=== PATIENT | male | born 1975 | race Caucasian/White ===

== ENCOUNTER 2017-02-19 14:49 | Emergency (ER) | payer BC ==
--- NOTE | 2017-02-19 15:17 | EDM.PDOC ---
[id number]: tachycardia Time Seen by Provider: 02/19/17 14:53 Source of Information: Reports: Patient History Limitations: Reports: No limitations - History of Present Illness INITIAL COMMENTS - FREE TEXT/NARRATIVE: This patient is a 41 year old male that presents to the ER. Patient reports that he had an ablation for a-flutter on at [facility] with Dr. Arrington the care manager cna. He reports that he went home and was feeling fine. He reports then on Sunday evening he was sitting in his chair when he started having fluttering and flopping of his heart in his chest. He reports having nausea and shortness of breath with it. He reports calling Dr. Arrington today and was asked to come to ER for EKG. Symptom Onset Date: 02/17/17 Timing/Duration: Reports: Day(s): (2) Severity: moderate Location, General: Reports: chest Quality: Reports: Other ("flopping") Improves with: Reports: None Worsens with: Reports: None Associated Symptoms (General): Reports: nausea/vomiting, shortness of breath. Denies: confusion, chest pain, cough, cough w sputum, diaphoresis, fever/chills , headaches, loss of appetite, malaise, rash, seizure, syncope, weakness - Related Data Allergies/ADRs: Allergies Allergy/AdvReac Type Severity Reaction Status Date / Time No Known Allergies Allergy Verified 02/19/17 14:59 Home Meds: Home Meds Apixaban [Eliquis] 5 mg PO BID 02/19/17 [History] Metoprolol Tartrate [Metoprolol Tartrate] 50 mg PO BID 02/19/17 [History] Pantoprazole [ProTONIX] 40 mg PO DAILY 02/19/17 [History] Past Medical History Cardiovascular History: Reports: Afib, Hypertension - Past Surgical History Other Cardiovascular Surgeries/Procedures: cardiac ablation 2005, 02/15/17 GI Surgical History: Reports: Appendectomy Social & Family History - Tobacco Use Smoking Status *Q: Former Smoker Used Tobacco, but Quit: Yes Month Tobacco Last Used: approx 1 year ago - Caffeine Use Caffeine Use: Reports: None - Alcohol Use Days Per Week of Alcohol Use: 3 Number of Drinks Per Day: 12 Total Drinks Per Week: 36 - Recreational Drug Use Recreational Drug Use: No ED ROS GENERAL - Review of Systems Review Of Systems: See Below Constitutional: Reports: no symptoms HEENT: Reports: No symptoms Respiratory: Reports: Shortness of Breath Cardiovascular: Reports: Dyspnea on exertion, Other ("flopping, fluttering of heart") Endocrine: Reports: no symptoms GI/Abdominal: Reports: Nausea : Reports: no symptoms Musculoskeletal: Reports: no symptoms Skin: Reports: no symptoms Neurological: Reports: No Symptoms Psychiatric: Reports: No symptoms Hematologic/Lymphatic: Reports: no symptoms Immunologic: Reports: no symptoms ED EXAM, GENERAL - Physical Exam Exam: See Below Exam Limited By: No limitations General Appearance: alert, WD/WN, no apparent distress, obese Eye Exam: bilateral eye: normal inspection, PERRL Ears: normal external exam, normal canal, hearing grossly normal, normal TMs Ear Exam: bilateral ear: auricle normal, canal normal, TM normal Nose: normal inspection, normal mucosa, no blood Throat/Mouth: Normal inspection, Normal lips, Normal teeth, Normal gums, Normal oropharynx, Normal voice, No airway compromise Head: atraumatic, normocephalic Neck: normal inspection, supple, non-tender, full range of motion Respiratory/Chest: no respiratory distress, lungs clear, normal breath sounds, no accessory muscle use Cardiovascular: normal peripheral pulses, no edema, no JVD, irregularly irregular Peripheral Pulses: 2+: carotid (L), carotid (R), radial (L), radial (R), posterior tibial (L), posterior tibial (R) Back Exam: normal inspection, full range of motion Extremities: normal inspection, normal range of motion, non-tender, no pedal edema, normal capillary refill Neurological: alert, oriented Psychiatric: normal affect, normal mood Skin Exam: Warm, Dry, Intact, Normal color, No rash Lymphatic: no adenopathy EKG INTERPRETATION EKG Date: 02/19/17 Time: 15:01 Rhythm: a-flutter Rate (beats/min): 132 Course - Vital Signs Last Recorded V/S: Last Vital Signs Temp 98.5 F 02/19/17 15:15 Pulse 129 H 02/19/17 15:50 Resp 20 02/19/17 15:15 BP 128/76 02/19/17 16:10 Pulse Ox 96 02/19/17 15:15 - Orders/Labs/Meds Orders: Active Orders 24 hr Category Date Time Status Chest 2V [CR] Stat Exams 02/19/17 14:54 Taken Labs: Laboratory Tests 02/19/17 02/19/17 Range/Units 14:53 15:00 WBC 9.8 (5.0-10.0) 10^3/uL RBC 4.52 (4.50-6.00) 10^6/uL Hgb 13.7 L (14.0-18.0) g/dL Hct 41.3 (40.0-54.0) % MCV 91.4 (82.0-94.0) fL MCH 30.3 (27.0-32.0) pg MCHC 33.2 (33.0-38.0) g/dL RDW Coeff of Rusty 13.8 (11.0-15.0) % Plt Count 220 (150-400) 10^3/uL Neut % (Auto) 64.1 (35-85) % Lymph % (Auto) 24.1 (10-55) % Parmer % (Auto) 8.4 (0-16) % Eos % (Auto) 3.2 (0-5) % Baso % (Auto) 0.2 (0-3) % Neut # (Auto) 6.26 (1.80-7.00) 10^3/uL Lymph # (Auto) 2.35 (1.00-4.80) 10^3/uL Parmer # (Auto) 0.82 H (0.00-0.80) 10^3/uL Eos # (Auto) 0.31 (0.00-0.45) 10^3/uL Baso # (Auto) 0.02 10^3/uL Sodium 139 (136-145) mEq/L Potassium 4.0 (3.5-5.0) mEq/L Chloride 103 (98-106) mEq/L Carbon Dioxide 29 (21-32) mmol/L BUN 12 (7-18) mg/dL Creatinine 0.9 (0.7-1.3) mg/dL Est Cr Clr Drug Dosing 123.05 mL/min Estimated GFR (MDRD) > 60 (>=60) mL/min Glucose 116 H (75-99) mg/dL Calcium 8.7 (8.4-10.1) mg/dL Magnesium 2.1 (1.8-2.4) mg/dL Total Bilirubin 0.4 (0.0-1.0) mg/dL AST 15 (15-37) U/L ALT 25 (12-78) U/L Alkaline Phosphatase 86 (46-116) U/L Creatine Kinase 29 L (35-232) U/L Troponin I 0.061 H (0.00-0.06) ng/mL Total Protein 7.4 (6.4-8.2) g/dL Albumin 3.1 L (3.4-5.0) g/dL Meds: Medications Discontinued Medications Generic Name Dose Route Start Last Admin Trade Name Freq PRN Reason Stop Dose Admin Diltiazem HCl 10 mg 02/19/17 15:21 02/19/17 15:48 Diltiazem IVPUSH 02/19/17 15:22 10 mg ONETIME ONE Administration Diltiazem HCl 100 mg/ Sodium 100 mls @ 5 mls/hr 02/19/17 15:30 02/19/17 15:50 Chloride IV 5 mls/hr TITRATE KATYA Administration Protocol 5 MG/HR Sodium Chloride Confirm 02/19/17 15:39 02/19/17 15:51 Normal Saline Administered 02/19/17 15:40 25 ml Dose Administration 1,000 mls @ as directed .ROUTE .STK-MED ONE - Radiology Interpretation Free Text/Narrative:: CXR: No infiltrates, no edema, no cardiac enlargement. - Re-Assessments/Exams Free Text/Narrative Re-Assessment/Exam: 02/19/17 15:20 reviewed EKG that shows him in A-flutter with HR of 132. I called to talke to Dr Arrington and faxed copy of his EKG. She has reported to one call transfer line to transfer the patient for cardioversion tomorrow. I then spoke to the hospitalist Dr. Salazar who has accepted the patient. He requests to start the patient on Cardizem gtt. I will do this and transfer the patient. Departure - Departure Time of Disposition: 15:18 Disposition: DC/Tfer to Acute Hospital 02 Reason for Transfer *Q: Other Condition: fair Clinical Impression: Atrial flutter Qualifiers: Atrial flutter type: unspecified Qualified Code(s): I48.92 - Unspecified atrial flutter Dyspnea Qualifiers: Dyspnea type: dyspnea on exertion Qualified Code(s): R06.09 - Other forms of dyspnea Referrals: Siav Orozco MD [Primary Care Provider] - Forms: ED Department Discharge - My Orders Last 24 Hours: My Active Orders 02/19/17 14:54 Chest 2V [CR] Stat - Assessment/Plan Last 24 Hours: My Active Orders 02/19/17 14:54 Chest 2V [CR] Stat Plan: PLEASE SEE RN NOTE FOR PFSH.
[2017-02-19] MEDS ORDERED: Diltiazem 25 MG/5 ML SDV IVPUSH ONE (15:21)
[2017-02-19 15:23] LABS: CHLORIDE,CL 103 mEq/L (98-106); SODIUM,NA 139 mEq/L (136-145)
[2017-02-19] MEDS ORDERED: Diltiazem 100 MG in Sodium Chloride 0.9% 100 ML IV SCH (15:30)
[2017-02-19] MEDS ORDERED: Sodium Chloride 0.9% 1,000 ML ONE (15:39)
[2017-02-19 16:13] VITALS: BP 128/76
== END 2017-02-19 16:20 ==
LOC: CC.ED 14:49
DX: I48.92 Unspecified atrial flutter (principal); I48.91 Unspecified atrial fibrillation; I10 Essential (primary) hypertension; Z90.49 Acquired absence of other specified parts of digestive tract; Z87.891 Personal history of nicotine dependence; Z79.899 Other long term (current) drug therapy
CPT/HCPCS: 36415; 71020; 80053; 82550; 83735; 84484; 85025; 93005; 96365; 96376; 99285; J7030; J7050; J3490

== ENCOUNTER 2021-08-30 11:54 | Inpatient (IN) | payer BC ==
[~2021-08-30 11:54] MED LIST: Adenosine 6 MG/2 ML SDV ONE; Diltiazem 25 MG/5 ML SDV ONE
[2021-08-30] MEDS ORDERED: Diltiazem 25 MG/5 ML SDV IVPUSH ONE ×2 (12:22→12:34)
[2021-08-30] MEDS ORDERED: Adenosine 6 MG/2 ML SDV IVPUSH ONE ×2 (12:22→12:23)
[2021-08-30 12:45] LABS: CHLORIDE,CL 102 mEq/L (98-106); SODIUM,NA 140 mEq/L (136-145)
[2021-08-30] MEDS ORDERED: Diltiazem 100 MG in Sodium Chloride 0.9% 100 ML IV SCH (12:45)
[2021-08-30] MEDS ORDERED: Digoxin 500 MCG/2 ML Amp IVPUSH ONE (14:03)
[2021-08-30] MEDS ORDERED: Ondansetron 4 MG/2 ML SDV IV PRN (14:34)
[2021-08-30] MEDS ORDERED: Acetaminophen 325 MG Tab PO PRN (14:34)
[2021-08-30] MEDS ORDERED: Ondansetron 4 MG Tab.DIS PO PRN (14:34)
[2021-08-30] MEDS ORDERED: Sodium Chloride 0.9% 10 ML Syringe FLUSH PRN (14:34)
[2021-08-30] MEDS: Apixaban 5 MG Tab PO SCH (16:56)
[2021-08-30] MEDS: Metoprolol Tartrate 50 MG Tab PO SCH (16:57)
--- NOTE | 2021-08-30 17:14 | EDM.PDOC ---
ED HPI GENERAL MEDICAL PROBLEM - General Chief Complaint: General Stated Complaint: Palpitations Time Seen by Provider: 08/30/21 12:05 Source of Information: Reports: Patient History Limitations: Reports: No Limitations - History of Present Illness INITIAL COMMENTS - FREE TEXT/NARRATIVE: Joaquin is a 45 year old male who presented initially to clinic with complaints of palpitations, questioned if in atrial fib or flutter again. Patient has long standing history of this, diagnosed back 15 years ago. Over the years, has had ablations x3 and cardioversion 2-3 times due to paroxysmal atrial fib. Was seen by Dr. Salomón xiong in April for an evaluation. Was switched from Sotalol to Metoprolol 100 mg daily. [place] that it caused excessive fatigue, had no ambition for anything. Advised Dr. Pa of this when seen 3 weeks ago. Reduced his dose to 50 mg daily. Had felt that he was in atrial fib when he was enroute to [place] at that time but when evaluated was in NSR. Noted a change in his rhythm again about a week ago but has persisted with rapid heart rate now for the last 4 days. Increased his metoprolol at that time but hasn't noted any change. Denies any chest pain or shortness of breath. has noted an increase of 20# over the last month. Noted more edema as well. Onset: Gradual Duration: Day(s):, Constant Location: Reports: Chest Associated Symptoms: Reports: Other (fatigue). Denies: Chest Pain, Diaphoresis, Fever/Chills, Headaches, Loss of Appetite, Nausea/Vomiting, Shortness of Breath, Syncope - Related Data Allergies Allergy/AdvReac Type Severity Reaction Status Date / Time amiodarone Allergy Hives Verified 08/30/21 13:00 Home Meds: Home Meds Apixaban [Eliquis] 5 mg PO BID 02/19/17 [History] Metoprolol Tartrate 50 mg PO DAILY 02/19/17 [History] Past Medical History Cardiovascular History: Reports: Afib, Hypertension - Past Surgical History Other Cardiovascular Surgeries/Procedures: cardiac ablation 2005, 02/15/17 GI Surgical History: Reports: Appendectomy Social & Family History - Family History Family Medical History: No Pertinent Family History - Tobacco Use Tobacco Use Status *Q: Never Tobacco User Second Hand Smoke Exposure: No - Caffeine Use Caffeine Use: Reports: None - Recreational Drug Use Recreational Drug Use: No ED ROS GENERAL - Review of Systems Review Of Systems: See Below Constitutional: Reports: Malaise, Fatigue. Denies: Fever, Chills, Weakness, Decreased Appetite HEENT: Reports: Rhinitis, Sinus Problem. Denies: Nose Pain, Throat Pain, Vertigo Respiratory: Denies: Shortness of Breath, Cough Cardiovascular: Reports: Edema. Denies: Chest Pain, Lightheadedness Endocrine: Reports: Fatigue GI/Abdominal: Denies: Abdominal Pain, Nausea, Vomiting : Reports: No Symptoms Musculoskeletal: Reports: No Symptoms Skin: Reports: No Symptoms Neurological: Reports: No Symptoms Psychiatric: Reports: No Symptoms ED EXAM, GENERAL - Physical Exam Exam: See Below Exam Limited By: No Limitations General Appearance: Alert, WD/WN, No Apparent Distress Ears: Normal External Exam, Normal TMs Nose: Normal Inspection, Nasal Drainage Throat/Mouth: Normal Inspection, Normal Oropharynx Head: Normocephalic Neck: Normal Inspection, Supple, Non-Tender Respiratory/Chest: No Respiratory Distress, Lungs Clear, Normal Breath Sounds Cardiovascular: Tachycardia GI/Abdominal: Normal Bowel Sounds, Soft, Non-Tender Extremities: Normal Inspection, Pedal Edema (1+) Neurological: Alert, Oriented Skin Exam: Warm, Dry Course - Vital Signs Last Recorded V/S: Last Vital Signs Temp 98.4 F 08/30/21 19:42 Pulse 88 08/30/21 19:42 Resp 20 08/30/21 19:42 BP 123/78 08/30/21 19:42 Pulse Ox 94 L 08/30/21 19:42 - Orders/Labs/Meds Orders: Active Orders 24 hr Category Date Time Status Chest 1V Frontal [CR] Stat Exams 08/30/21 12:12 Taken Diltiazem [Cardizem] 100 mg Med 08/30/21 12:45 Active Sodium Chloride 0.9% [Normal Saline AdvBag] 100 ml IV TITRATE Medication Orders Acetaminophen (Acetaminophen 325 Mg Tab) 650 mg PO Q4H PRN PRN Reason: Pain (Mild 1-3)/fever Apixaban (Apixaban 5 Mg Tab) 5 mg PO BID [facility] Last Admin: 08/30/21 16:56 Dose: 5 mg Documented by: JORGE Digoxin (Digoxin 500 Mcg/2 Ml Amp) 250 mcg IVPUSH Q6H [facility] Stop: 08/31/21 02:01 Diltiazem HCl 100 mg/ Sodium (Chloride) 100 mls @ 5 mls/hr IV TITRATE KATYA; Protocol Last Titration: 08/30/21 14:10 Dose: 15 mg/hr, 15 mls/hr Documented by: Admin: 08/30/21 12:49 Dose: 5 mg/hr, 5 mls/hr Documented by: JORGE Metoprolol Tartrate (Metoprolol Tartrate 50 Mg Tab) 75 mg PO Q12H KATYA Last Admin: 08/30/21 16:57 Dose: 75 mg Documented by: JORGE Ondansetron HCl (Ondansetron 4 Mg Tab.Dis) 4 mg PO Q4H PRN PRN Reason: nausea, able to take PO Ondansetron HCl (Ondansetron 4 Mg/2 Ml Sdv) 4 mg IV Q4H PRN PRN Reason: Nausea/Vomiting Sodium Chloride (Sodium Chloride 0.9% 10 Ml Syringe) 10 ml FLUSH ASDIRECTED PRN PRN Reason: Keep Vein Open Labs: Laboratory Tests 08/30/21 08/30/21 08/30/21 Range/Units 12:00 12:20 12:20 WBC 10.8 (4.0-11.0) 10^3/uL RBC 4.37 L (4.50-6.00) x10^6/uL Hgb 13.1 L (14.0-18.0) g/dL Hct 40.8 L (42.0-52.0) % MCV 93.4 (83.0-97.0) fL MCH 30.0 (27.0-32.0) pg MCHC 32.1 (32.0-36.0) g/dL RDW Coeff of Rusty 13.6 (11.0-15.0) % Plt Count 239 (150-400) 10^3/uL Immature Gran % (Auto) 0.2 (0.0-4.9) % Neut % (Auto) 71.4 H (41-71) % Lymph % (Auto) 18.8 L (24-44) % [place] % (Auto) 7.5 (0-10) % Eos % (Auto) 1.8 (0-6) % Baso % (Auto) 0.3 (0-1) % Neut # (Auto) 7.73 (1.80-8.00) x10^3/uL Lymph # (Auto) 2.03 (0.60-5.00) 10^3/uL Charlotte # (Auto) 0.81 (0.00-1.50) 10^3/uL Eos # (Auto) 0.20 (0.00-1.50) 10^3/uL Baso # (Auto) 0.03 (0.00-0.50) 10^3/uL Immature Gran # (Auto) 0.02 (0.00-0.49) 10^3/uL Sodium 140 (136-145) mEq/L Potassium 3.9 (3.5-5.0) mEq/L Chloride 102 (98-106) mEq/L Carbon Dioxide 31 (21-32) mmol/L BUN 11 (7-18) mg/dL Creatinine 1.1 (0.7-1.3) mg/dL Est Cr Clr Drug Dosing 96.52 mL/min Estimated GFR (MDRD) > 60 (>=60) mL/min Glucose 146 H (75-99) mg/dL Calcium 8.8 (8.4-10.1) mg/dL Total Bilirubin 0.6 (0.0-1.0) mg/dL AST 32 (15-37) U/L ALT 33 (12-78) U/L Alkaline Phosphatase 108 (46-116) U/L Lactate Dehydrogenase 190 (100-190) U/L Creatine Kinase 185 (35-232) U/L Troponin I High Sens 14.8 (<=76) pg/mL NT-Pro-B Natriuret Pep 2273 H (0-1000) pg/mL Total Protein 7.3 (6.4-8.2) g/dL Albumin 2.9 L (3.4-5.0) g/dL SARS CoV-2 RNA Rapid CORINNE Negative (NEGATIVE) Meds: Medications Generic Name Dose Route Start Last Admin Trade Name Freq PRN Reason Stop Dose Admin Acetaminophen 650 mg 08/30/21 14:34 Acetaminophen 325 Mg Tab PO Q4H PRN Pain (Mild 1-3)/fever Apixaban 5 mg 08/30/21 15:45 08/30/21 16:56 Apixaban 5 Mg Tab PO 5 mg BID KATYA Administration Digoxin 250 mcg 08/30/21 20:00 Digoxin 500 Mcg/2 Ml Amp IVPUSH 08/31/21 02:01 Q6H KATYA Diltiazem HCl 100 mg/ Sodium 100 mls @ 5 mls/hr 08/30/21 12:45 08/30/21 14:10 Chloride IV 15 mg/hr TITRATE KATYA 15 mls/hr Titration Protocol 5 MG/HR Metoprolol Tartrate 75 mg 08/30/21 16:30 08/30/21 16:57 Metoprolol Tartrate 50 Mg Tab PO 75 mg Q12H KATYA Administration Ondansetron HCl 4 mg 08/30/21 14:34 Ondansetron 4 Mg Tab.Dis PO Q4H PRN nausea, able to take PO Ondansetron HCl 4 mg 08/30/21 14:34 Ondansetron 4 Mg/2 Ml Sdv IV Q4H PRN Nausea/Vomiting Sodium Chloride 10 ml 08/30/21 14:34 Sodium Chloride 0.9% 10 Ml Syringe FLUSH ASDIRECTED PRN Keep Vein Open Discontinued Medications Generic Name Dose Route Start Last Admin Trade Name Freq PRN Reason Stop Dose Admin Adenosine Confirm 08/30/21 11:38 08/30/21 12:24 Adenosine 6 Mg/2 Ml Sdv Administered 08/30/21 11:39 Not Given Dose 6 mg .ROUTE .STK-MED ONE Adenosine Confirm 08/30/21 11:41 08/30/21 12:24 Adenosine 6 Mg/2 Ml Sdv Administered 08/30/21 11:42 Not Given Dose 12 mg .ROUTE .STK-MED ONE Adenosine 6 mg 08/30/21 12:22 08/30/21 12:06 Adenosine 6 Mg/2 Ml Sdv IVPUSH 08/30/21 12:23 6 mg NOW ONE Administration Adenosine 12 mg 08/30/21 12:23 08/30/21 12:08 Adenosine 6 Mg/2 Ml Sdv IVPUSH 08/30/21 12:24 12 mg NOW ONE Administration Digoxin 500 mcg 08/30/21 14:03 08/30/21 14:17 Digoxin 500 Mcg/2 Ml Amp IVPUSH 08/30/21 14:04 500 mcg ONETIME ONE Administration Diltiazem HCl Confirm 08/30/21 11:45 08/30/21 12:24 Diltiazem 25 Mg/5 Ml Sdv Administered 08/30/21 11:46 Not Given Dose 25 mg .ROUTE .STK-MED ONE Diltiazem HCl 10 mg 08/30/21 12:22 08/30/21 12:15 Diltiazem 25 Mg/5 Ml Sdv IVPUSH 08/30/21 12:23 10 mg ONETIME ONE Administration Diltiazem HCl 10 mg 08/30/21 12:34 08/30/21 12:34 Diltiazem 25 Mg/5 Ml Sdv IVPUSH 08/30/21 12:35 10 mg ONETIME ONE Administration - Re-Assessments/Exams Free Text/Narrative Re-Assessment/Exam: 08/30/[address] Pa's office, patient's educator senior clinical. Spoke with nurse, will call back with recommendations 1330-Patient has been given total of 20 mg IVP of Cardizem. Cardizem drip started. Did see reduction in rate down to 120s for short period of time and noted atrial flutter versus SVT. Advised from Dr. Pa's office to contact [place] [facility] call. Spoke with DR. Parmar. Did discuss cardioversion but due to lack of anesthesia here in [place] and they are not accepting patient's, advised to start an Amiodarone drip but advised of allergy. Suggested increasing metoprolol and dig load patient. 1415-Admit. Continue Cardizem drip until rate controlled with dig and metoprolol and wean down off the cardizem drip. Departure - Departure Time of Disposition: 14:30 Disposition: Admitted As Inpatient 64 Condition: Fair Clinical Impression: Atrial flutter with rapid ventricular response Sepsis Event Note (ED) - Evaluation Sepsis Screening Result: No Definite Risk - Focused Exam Vital Signs: Vital Signs Temp Pulse Resp BP Pulse Ox 08/30/21 13:47 152 H 18 126/54 L 96 08/30/21 13:01 148 H 18 126/69 96 08/30/21 12:33 165 H 18 130/95 H 95 08/30/21 12:25 168 H 14 118/56 L 96 08/30/21 11:55 97.2 F 170 H 18 125/57 L 95 - Problem List & Annotations (1) Atrial flutter with rapid ventricular response SNOMED Code(s): 3404359, 0565459 Code(s): I48.92 - UNSPECIFIED ATRIAL FLUTTER Status: Acute Priority: High Current Visit: Yes - Problem List Review Problem List Initiated/Reviewed/Updated: Yes - My Orders Last 24 Hours: My Active Orders 08/30/21 12:12 Chest 1V Frontal [CR] Stat 08/30/21 12:45 Diltiazem [Cardizem] 100 mg Sodium Chloride 0.9% [Normal Saline AdvBag] 100 ml IV TITRATE - Assessment/Plan Admission H&P: Please use this note as an admission H&P Last 24 Hours: My Active Orders 08/30/21 12:12 Chest 1V Frontal [CR] Stat 08/30/21 12:45 Diltiazem [Cardizem] 100 mg Sodium Chloride 0.9% [Normal Saline AdvBag] 100 ml IV TITRATE Assessment:: ATrial Flutter with RVR Plan: Admit inpatient. Dig load patient, increase metoprolol, reduce Cardizem as able. Will give dose of IV Lasix in am. Repeat labs at that time
[2021-08-30] MEDS: Digoxin 500 MCG/2 ML Amp IVPUSH SCH (20:36)
[2021-08-31] MEDS: Apixaban 5 MG Tab PO SCH ×2 (00:05→07:52)
[2021-08-31] MEDS: Digoxin 500 MCG/2 ML Amp IVPUSH SCH (02:16)
[2021-08-31] MEDS: Metoprolol Tartrate 50 MG Tab PO SCH (04:55)
[2021-08-31 04:56] VITALS: PULSE 156
[2021-08-31 07:40] LABS: CHLORIDE,CL 103 mEq/L (98-106); SODIUM,NA 139 mEq/L (136-145)
[2021-08-31 07:53] VITALS: BP 127/87
--- NOTE | 2021-08-31 08:59 | PCM.DCSUM1 ---
Discharge Summary - Hospital Course HPI Initial Comments: Joaquin is a 45 year old male who presented initially to clinic with complaints of palpitations, questioned if in atrial fib or flutter again. Patient has long standing history of this, diagnosed back 15 years ago. Over the years, has had ablations x3 and cardioversion 2-3 times due to paroxysmal atrial fib. Was seen by Dr. Lorenzana back in April for an evaluation. Was switched from Sotalol to Metoprolol 100 mg daily. [place] that it caused excessive fatigue, had no ambition for anything. Advised Dr. Pa of this when seen 3 weeks ago. Reduced his dose to 50 mg daily. Had felt that he was in atrial fib when he was enroute to [place] at that time but when evaluated was in NSR. Noted a change in his rhythm again about a week ago but has persisted with rapid heart rate now for the last 4 days. Increased his metoprolol at that time but hasn't noted any change. Denies any chest pain or shortness of breath. has noted an increase of 20# over the last month. Noted more edema as well. - Discharge Data Discharge Date: 08/31/21 Discharge Disposition: Home, Self-Care 01 Condition: Good - Referral to Home Health Primary Care Physician: Siva Orozco MD - Discharge Diagnosis/Problem(s) (1) Atrial flutter with rapid ventricular response SNOMED Code(s): 0781612, [id number] ICD Code: I48.92 - UNSPECIFIED ATRIAL FLUTTER Status: Acute Priority: High Current Visit: Yes - Patient Instructions Diet: Heart Healthy Diet Activity: As Tolerated, No Strenuous Activities - Discharge Plan *PRESCRIPTION DRUG MONITORING PROGRAM REVIEWED*: Not Applicable *COPY OF PRESCRIPTION DRUG MONITORING REPORT IN PATIENT DAWNA: Not Applicable Prescriptions/Med Rec: Digoxin 250 mcg PO DAILY #30 tablet Furosemide [Lasix] 40 mg PO DAILY #30 tab Metoprolol Tartrate [Lopressor] 75 mg PO Q12H #45 tablet Home Medications: Home Meds Apixaban [Eliquis] 5 mg PO BID 02/19/17 [History] Digoxin 250 mcg PO DAILY #30 tablet 08/31/21 [Rx] Furosemide [Lasix] 40 mg PO DAILY #30 tab 08/31/21 [Rx] Metoprolol Tartrate [Lopressor] 75 mg PO Q12H #45 tablet 08/31/21 [Rx] Oxygen Therapy Mode: Room Air Forms: ED Department Discharge Referrals: Siva Orozco MD [Primary Care Provider] - (1 week, labs prior to include ProBNP, BMP and digoxin level) - Discharge Summary/Plan Comment DC Time >30 min.: Yes Total # of Minutes for Discharge Time: 45 minutes Discharge Summary/Plan Comment: Plan for discharge home at this time. Patient will be started on Metoprolol Tartrate 75mg BID and will d/c the metoprolol succinate. Digoxin initiated in the hospital and will go home on 250mcg daily. Patient also started on Lasix 40mg daily, discussed with patient potassium depletion. Will have him follow up in 1 week for repeat labs and appointment with Dr. Orozco. Patient in agreement and voices understanding. Will return if any concerns. - General Info Date of Service: 08/31/21 Admission Dx/Problem (Free Text: Atrial flutter with RVR CHF Subjective Update: Joaquin states he is feeling fine this morning and requesting to go home. He states he can tell his rate isn't as fast as it was prior. Is scheduled to see Dr. Pa in October but wonders if he shouldn't see him sooner. He denies any chest pain. No shortness of breath, lightheadedness or presyncope. Questions if he can go on a water pill to help remove some of the excessive water weight. Functional Status: Reports: Tolerating Diet, Ambulating, Urinating. Denies: New Symptoms - Review of Systems General: Reports: Fatigue. Denies: Appetite HEENT: Reports: No Symptoms Pulmonary: Reports: No Symptoms Cardiovascular: Reports: No Symptoms Gastrointestinal: Reports: No Symptoms Genitourinary: Reports: No Symptoms Musculoskeletal: Reports: No Symptoms Neurological: Reports: No Symptoms Psychiatric: Reports: No Symptoms - Patient Data Vitals - Most Recent: Last Vital Signs Temp 97.8 F 08/31/21 07:52 Pulse 156 H 08/31/21 04:55 Resp 16 08/31/21 07:52 BP 127/87 08/31/21 07:52 Pulse Ox 95 08/31/21 07:52 Weight - Most Recent: 460 lb Lab Results - Last 24 hrs: Laboratory Results - last 24 hr 08/30/21 08/30/21 08/30/21 Range/Units 12:00 12:20 12:20 WBC 10.8 (4.0-11.0) 10^3/uL RBC 4.37 L (4.50-6.00) x10^6/uL Hgb 13.1 L (14.0-18.0) g/dL Hct 40.8 L (42.0-52.0) % MCV 93.4 (83.0-97.0) fL MCH 30.0 (27.0-32.0) pg MCHC 32.1 (32.0-36.0) g/dL RDW Coeff of Rusty 13.6 (11.0-15.0) % Plt Count 239 (150-400) 10^3/uL Immature Gran % (Auto) 0.2 (0.0-4.9) % Neut % (Auto) 71.4 H (41-71) % Lymph % (Auto) 18.8 L (24-44) % [place] % (Auto) 7.5 (0-10) % Eos % (Auto) 1.8 (0-6) % Baso % (Auto) 0.3 (0-1) % Neut # (Auto) 7.73 (1.80-8.00) x10^3/uL Lymph # (Auto) 2.03 (0.60-5.00) 10^3/uL [place] # (Auto) 0.81 (0.00-1.50) 10^3/uL Eos # (Auto) 0.20 (0.00-1.50) 10^3/uL Baso # (Auto) 0.03 (0.00-0.50) 10^3/uL Immature Gran # (Auto) 0.02 (0.00-0.49) 10^3/uL Sodium 140 (136-145) mEq/L Potassium 3.9 (3.5-5.0) mEq/L Chloride 102 (98-106) mEq/L Carbon Dioxide 31 (21-32) mmol/L BUN 11 (7-18) mg/dL Creatinine 1.1 (0.7-1.3) mg/dL Est Cr Clr Drug Dosing 96.52 mL/min Estimated GFR (MDRD) > 60 (>=60) mL/min Glucose 146 H (75-99) mg/dL Calcium 8.8 (8.4-10.1) mg/dL Total Bilirubin 0.6 (0.0-1.0) mg/dL AST 32 (15-37) U/L ALT 33 (12-78) U/L Alkaline Phosphatase 108 (46-116) U/L Lactate Dehydrogenase 190 (100-190) U/L Creatine Kinase 185 (35-232) U/L Troponin I High Sens 14.8 (<=76) pg/mL NT-Pro-B Natriuret Pep 2273 H (0-1000) pg/mL Total Protein 7.3 (6.4-8.2) g/dL Albumin 2.9 L (3.4-5.0) g/dL Digoxin (0.9-2.0) ng/mL SARS CoV-2 RNA Rapid CORINNE Negative (NEGATIVE) 08/31/21 08/31/21 Range/Units 06:55 06:55 WBC 9.1 (4.0-11.0) 10^3/uL RBC 4.32 L (4.50-6.00) x10^6/uL Hgb 12.9 L (14.0-18.0) g/dL Hct 40.2 L (42.0-52.0) % MCV 93.1 (83.0-97.0) fL MCH 29.9 (27.0-32.0) pg MCHC 32.1 (32.0-36.0) g/dL RDW Coeff of Rusty 13.6 (11.0-15.0) % Plt Count 210 (150-400) 10^3/uL Immature Gran % (Auto) 0.3 (0.0-4.9) % Neut % (Auto) 67.5 (41-71) % Lymph % (Auto) 22.7 L (24-44) % [place] % (Auto) 6.1 (0-10) % Eos % (Auto) 3.2 (0-6) % Baso % (Auto) 0.2 (0-1) % Neut # (Auto) 6.11 (1.80-8.00) x10^3/uL Lymph # (Auto) 2.06 (0.60-5.00) 10^3/uL [place] # (Auto) 0.55 (0.00-1.50) 10^3/uL Eos # (Auto) 0.29 (0.00-1.50) 10^3/uL Baso # (Auto) 0.02 (0.00-0.50) 10^3/uL Immature Gran # (Auto) 0.03 (0.00-0.49) 10^3/uL Sodium 139 (136-145) mEq/L Potassium 3.7 (3.5-5.0) mEq/L Chloride 103 (98-106) mEq/L Carbon Dioxide 30 (21-32) mmol/L BUN 11 (7-18) mg/dL Creatinine 1.0 (0.7-1.3) mg/dL Est Cr Clr Drug Dosing 106.18 mL/min Estimated GFR (MDRD) > 60 (>=60) mL/min Glucose 140 H (75-99) mg/dL Calcium 8.4 (8.4-10.1) mg/dL Total Bilirubin (0.0-1.0) mg/dL AST (15-37) U/L ALT (12-78) U/L Alkaline Phosphatase (46-116) U/L Lactate Dehydrogenase (100-190) U/L Creatine Kinase (35-232) U/L Troponin I High Sens (<=76) pg/mL NT-Pro-B Natriuret Pep (0-1000) pg/mL Total Protein (6.4-8.2) g/dL Albumin (3.4-5.0) g/dL Digoxin 1.1 (0.9-2.0) ng/mL SARS CoV-2 RNA Rapid CORINNE (NEGATIVE) Med Orders - Current: Current Medications Acetaminophen (Acetaminophen 325 Mg Tab) 650 mg PO Q4H PRN PRN Reason: Pain (Mild 1-3)/fever Apixaban (Apixaban 5 Mg Tab) 5 mg PO BID [facility] Last Admin: 08/31/21 07:52 Dose: 5 mg Documented by: Metoprolol Tartrate (Metoprolol Tartrate 50 Mg Tab) 75 mg PO Q12H [facility] Last Admin: 08/31/21 04:55 Dose: 75 mg Documented by: Ondansetron HCl (Ondansetron 4 Mg Tab.Dis) 4 mg PO Q4H PRN PRN Reason: nausea, able to take PO Ondansetron HCl (Ondansetron 4 Mg/2 Ml Sdv) 4 mg IV Q4H PRN PRN Reason: Nausea/Vomiting Sodium Chloride (Sodium Chloride 0.9% 10 Ml Syringe) 10 ml FLUSH ASDIRECTED PRN PRN Reason: Keep Vein Open Discontinued Medications Adenosine (Adenosine 6 Mg/2 Ml Sdv) Confirm Administered Dose 6 mg .ROUTE .STK- MED ONE Stop: 08/30/21 11:39 Last Admin: 08/30/21 12:24 Dose: Not Given Documented by: Adenosine (Adenosine 6 Mg/2 Ml Sdv) Confirm Administered Dose 12 mg .ROUTE .STK- MED ONE Stop: 08/30/21 11:42 Last Admin: 08/30/21 12:24 Dose: Not Given Documented by: Adenosine (Adenosine 6 Mg/2 Ml Sdv) 6 mg IVPUSH NOW ONE Stop: 08/30/21 12:23 Last Admin: 08/30/21 12:06 Dose: 6 mg Documented by: Adenosine (Adenosine 6 Mg/2 Ml Sdv) 12 mg IVPUSH NOW ONE Stop: 08/30/21 12:24 Last Admin: 08/30/21 12:08 Dose: 12 mg Documented by: Digoxin (Digoxin 500 Mcg/2 Ml Amp) 500 mcg IVPUSH ONETIME ONE Stop: 08/30/21 14:04 Last Admin: 08/30/21 14:17 Dose: 500 mcg Documented by: Digoxin (Digoxin 500 Mcg/2 Ml Amp) 250 mcg IVPUSH Q6H KATYA Stop: 08/31/21 02:01 Last Admin: 08/31/21 02:16 Dose: 250 mcg Documented by: Diltiazem HCl (Diltiazem 25 Mg/5 Ml Sdv) Confirm Administered Dose 25 mg .ROUTE .STK-MED ONE Stop: 08/30/21 11:46 Last Admin: 08/30/21 12:24 Dose: Not Given Documented by: Diltiazem HCl (Diltiazem 25 Mg/5 Ml Sdv) 10 mg IVPUSH ONETIME ONE Stop: 08/30/21 12:23 Last Admin: 08/30/21 12:15 Dose: 10 mg Documented by: Diltiazem HCl (Diltiazem 25 Mg/5 Ml Sdv) 10 mg IVPUSH ONETIME ONE Stop: 08/30/21 12:35 Last Admin: 08/30/21 12:34 Dose: 10 mg Documented by: Diltiazem HCl 100 mg/ Sodium (Chloride) 100 mls @ 5 mls/hr IV TITRATE KATYA; Protocol Last Titration: 08/30/21 14:10 Dose: 15 mg/hr, 15 mls/hr Documented by: - Exam General: Reports: Alert, Oriented, Cooperative, No Acute Distress Neck: Reports: Supple Lungs: Reports: Clear to Auscultation, Normal Respiratory Effort Cardiovascular: Reports: Regular Rate, Irregular Rhythm GI/Abdominal Exam: Normal Bowel Sounds, Soft, Non-Tender Extremities: Pedal Edema (2+ bilaterally) Skin: Reports: Warm, Dry, Intact
== END 2021-08-31 09:35 | disposition home or self-care (01) | DRG 201 ==
LOC: CC.ED 11:54 → CC.MS 14:11
PROVIDERS: ADMIT Physician Assistant Medical; ATTEND Family Medicine
DX: I48.92 Unspecified atrial flutter (principal); I48.0 Paroxysmal atrial fibrillation; Z20.822 Contact with and (suspected) exposure to COVID-19; I50.9 Heart failure, unspecified; I11.0 Hypertensive heart disease with heart failure; E66.01 Morbid (severe) obesity due to excess calories; Z90.49 Acquired absence of other specified parts of digestive tract; Z79.899 Other long term (current) drug therapy; Z68.43 Body mass index [BMI] 50.0-59.9, adult
CPT/HCPCS: 36415; 71045; 80048; 80053; 80162; 82550; 83615; 83880; 84484; 85025; 93005; A9270-GY; J0153; J1160; J3490; U0002

== ENCOUNTER 2024-04-29 02:31 | Emergency (ER) | payer BC ==
[2024-04-29 02:49] VITALS: BP 123/70; PULSE 111
[2024-04-29] MEDS: methylPREDNISolone Sodium Succinate 125 MG/2 ML SDV IM STA (02:57)
== END 2024-04-29 03:12 | disposition home or self-care (01) ==
LOC: CC.ED 02:31
DX: L50.9 Urticaria, unspecified (principal); I10 Essential (primary) hypertension; Z90.49 Acquired absence of other specified parts of digestive tract
CPT/HCPCS: 96372; 99282; J2919

== ENCOUNTER 2024-04-30 19:55 | Emergency (ER) | payer BC ==
[2024-04-30 20:11] VITALS: BP 140/79; PULSE 110
[2024-04-30] MEDS: Loratadine 10 MG Tab PO STA (20:32)
[2024-04-30] MEDS: Take Home: hydrOXYzine HCl 25 MG Tab, 4 Tab Pack PO ONE (20:32)
[2024-04-30] MEDS: hydrOXYzine HCl 25 MG Tab PO STA (20:32)
== END 2024-04-30 20:45 | disposition home or self-care (01) ==
LOC: CC.ED 19:55
DX: L50.9 Urticaria, unspecified (principal); I10 Essential (primary) hypertension; Z90.49 Acquired absence of other specified parts of digestive tract; Z79.899 Other long term (current) drug therapy
CPT/HCPCS: 99282; A9270